=== PATIENT | female | born 1930 | race Caucasian/White ===

== ENCOUNTER 2016-07-08 16:26 | Inpatient (IN) | payer MEDICARE, MEDICAID ==
[~2016-07-08] VITALS: Ht 162.6 cm; Wt 80.3 kg
[~2016-07-08 16:26] MED LIST: ACET325T53 PO; ACET500T86 PO; CALC500T51 PO; DOCU-170 PO; DONE5TAB3 PO; HYDR-3326 PO; LEVO112T2 PO; LINE600T PO; MAGN400O4 PO; MULT1TAB11 PO; NA P133E RC; PANT40TA2 PO; TRAM50TA PO
--- NOTE | 2016-07-08 16:35 | NUR ---
DR RICO AT THE BEDSIDE FOR EVAL AND EXAM.
--- NOTE | 2016-07-08 17:04 | NUR ---
PT REFUSED BLOOD DRAW, AWARE.
--- NOTE | 2016-07-08 17:10 | NUR ---
PT REFUSED CT SCAN, AWARE.
[2016-07-08] MEDS ORDERED: NA P133E RC (17:11)
[2016-07-08] MEDS ORDERED: CLON0.252 PO (17:11)
[2016-07-08] MEDS ORDERED: OMEG1CAP55 PO (17:11)
[2016-07-08] MEDS ORDERED: CRAN3875 PO (17:11)
[2016-07-08] MEDS ORDERED: CRAN400T4 PO (17:11)
[2016-07-08] MEDS ORDERED: BISA10SU12 RC (17:11)
--- NOTE | 2016-07-08 17:41 | NUR ---
PT START BEING AGGRESSIVE, MD AT THE BEDSIDE.
[2016-07-08] MEDS ORDERED: HALOPERIDOL LACTATE 5 MG/1 ML VIAL IM ONE (17:45)
[2016-07-08] MEDS ORDERED: HALOPERIDOL LACTATE 5 MG/1 ML VIAL ONE (17:52)
[2016-07-08] MEDS ORDERED: MIDAZOLAM HCL 2 MG/2 ML VIAL IM ONE (18:15)
[2016-07-08] MEDS ORDERED: MIDAZOLAM HCL 5 MG/ML VIAL ONE (18:18)
--- NOTE | 2016-07-08 18:42 | NUR ---
Patient is resting comfortably in bed with eyes closed, nad noted. vss.
[2016-07-08 18:44] LABS: BASOPHILS % (AUTO) 0.4 % (0.0-2.0); EOSINOPHILS # (AUTO) 0.4 K/uL (0.0-0.7); EOSINOPHILS % (AUTO) 5.4 % (0.0-7.0); HEMATOCRIT 41.1 % (37.0-47.0); HEMOGLOBIN 13.1 g/dL (12.0-16.0); LYMPHOCYTES # (AUTO) 2.1 K/uL (0.8-4.8); LYMPHOCYTES % (AUTO) 25.5 % (20.5-51.5); MEAN CORPUSCULAR HEMOGLOBIN 27.7 uug (27.0-31.0); MEAN CORPUSCULAR HGB CONC 32 g/dL (32.0-37.0); MEAN CORPUSCULAR VOLUME 86.9 fL (81.0-99.0); MONOCYTES # (AUTO) 0.8 K/uL (0.1-1.30); MONOCYTES % (AUTO) 10.2 % (0.0-11.0); NEUTROPHILS # (AUTO) 4.8 K/uL (1.8-8.9); NEUTROPHILS % (AUTO) 58.5 % (38.5-71.5); PLATELET COUNT (AUTO) 261 K/uL (150-450); RED BLOOD CELL COUNT(AUTO) 4.73 MIL/uL (4.20-5.40); RED CELL DISTRIBUTION WIDTH 15.1 % (11.5-14.5); WHITE BLOOD COUNT (AUTO) 8.1 K/uL (4.0-11.2)
[2016-07-08 18:47] LABS: CALCIUM 8.7 mg/dL (8.5-10.1); CARBON DIOXIDE 31 mmol/L (21-32); CHLORIDE 103 mmol/L (98-107); CREATININE 0.9 mg/dL (0.6-1.3); GLUCOSE 102 mg/dL (74-106); POTASSIUM 4.1 mmol/L (3.5-5.1); SODIUM SERUM 141 mmol/L (136-145); UREA NITROGEN, BLOOD 30 mg/dL (7-18)
[2016-07-08 18:53] LABS: ALANINE AMINOTRANSFERASE 22 U/L (14-59); ALKALINE PHOSPHATASE 85 U/L (50-136); ASPARTATE AMINOTRANSFERASE 22 U/L (15-37); BILIRUBIN,DIRECT 0.1 mg/dL (0.0-0.2); BILIRUBIN,TOTAL 0.3 mg/dL (0.2-1.0); TOTAL PROTEIN, SERUM 7.6 g/dL (6.4-8.2)
[2016-07-08 18:55] LABS: ACETAMINOPHEN < 2.0 ug/mL (10-30)
--- NOTE | 2016-07-08 19:00 | NUR ---
Report received from KELLY Reyna.Found patient sound asleep.
[2016-07-08 19:03] LABS: ETHANOL < 3 MG/DL (0-0)
--- NOTE | 2016-07-08 19:10 | NUR ---
aniceto matthews at the bedside for psych eval.
[2016-07-08 19:15] LABS: THYROID STIMULATING HORMONE 9.683 mIU/mL (0.358-3.740)
--- NOTE | 2016-07-08 20:00 | NUR ---
Pt remained stable, intermittently asleep, VS stable.Non aggressive.Continue monitor.Awaits to give report to MHU.
--- NOTE | 2016-07-08 20:15 | NUR ---
Report given to U KELLY Arizmendi.Pt is awake and conversational but remained confused.
--- NOTE | 2016-07-08 20:30 | NUR ---
Transferred pt to MHU via zandra Moeller.
[2016-07-08 20:40] VITALS: BP 118/73
[2016-07-08] MEDS ORDERED: MAGNESIUM HYDROXIDE 30 ML LIQUID UDC PO PRN (21:30)
[2016-07-08] MEDS ORDERED: MAG HYDROX/AL HYDROX/SIMETH 30 ML LIQUID UDC PO PRN (21:30)
[2016-07-08] MEDS ORDERED: ACETAMINOPHEN 325 MG TABLET PO PRN (21:30)
--- NOTE | 2016-07-08 22:00 | NUR ---
received to care, on a 5150 for gravely disabled, this resident of [facility], where she reportedly has been non compliant with nursing care, refusing to use a platform walker, has been more confused. with episodes of wanting to leave, and to go home with her son(who, according to the daughter, has had APS involvement, in the past),and deteriorating medical issues. upon arrival on the unit, she seemed calm, and slightly sedated(pt was given IM haldol and IM versed in the ER) O2 SAT ON ROOM AIR WAS 88%. pt was placed on O2 at 2 lpm via nasal cannula, and sat was 93%. pt was cooperative with questions and physical assessment, but declined to sign any papers. 1;1 sitter was assigned to bedside for safety d/t oxygen tubing. as of 2199, she appears to be asleep. no distress noted. sitter remains at bedside. will continue to monitor closely.
--- NOTE | 2016-07-09 02:00 | NUR ---
continues to sleep. O2 sat is now 95%, on 2 liters/nasal cannula. pt is arousable. no distress noted. sitter remains at bedside.
--- NOTE | 2016-07-09 06:00 | NUR ---
slept 4.5 hours, total. is now awake. O2 sat is 94%, on 2 liters. no distress noted.
[2016-07-09 07:30] VITALS: BP 139/63
[2016-07-09] MEDS ORDERED: HOME MED MISCELLANEOUS XX SCH ×3 (07:45)
[2016-07-09] MEDS ORDERED: HYDROCODONE/APAP 5-325MG TABLET PO PRN (07:45)
[2016-07-09] MEDS ORDERED: BISACODYL 10 MG SUPP.RECT RC PRN (07:45)
[2016-07-09] MEDS ORDERED: FLEET ENEMA 133 ML BOTTLE RC PRN (07:45)
[2016-07-09] MEDS: DOCUSATE SODIUM 100 MG CAPSULE PO SCH (09:46)
[2016-07-09] MEDS: MULTIVIT, IRON, MIN NO. 8, FA TABLET PO SCH (09:46)
[2016-07-09] MEDS: CALCIUM CARBONATE 500 MG TABLET PO SCH (09:46)
--- NOTE | 2016-07-09 11:55 | NUR ---
Initial discharge instructions:Patient resides at [facility] [[facility] [place],[address];[phone]].Per pt,she is unsure if she would like to return there when stable.Per daughter,she would like the pt to return back to [facility] if accepted.However,she is interested in [facility] as well.Spoke with Pat at [facility],who stated the pt will be accepted back when ready.JOSE ANGEL will speak with pt,family,and MD regarding appropriate discharge plans.SW will form a safe and proper discharge.
[2016-07-09 16:40] VITALS: BP 122/65
[2016-07-09] MEDS: DIVALPROEX 125 MG TABLET.DR PO SCH (17:36)
[2016-07-09] MEDS: ACETAMINOPHEN ES 500 MG TABLET PO SCH (17:37)
[2016-07-09] MEDS: OMEGA-3 FATTY ACIDS/FISH OIL CAPSULE PO SCH (20:10)
[2016-07-09] MEDS: DONEPEZIL 10 MG TABLET PO SCH (20:10)
[2016-07-09] MEDS: MIRTAZAPINE 15 MG TABLET PO SCH (20:10)
[2016-07-09] MEDS: CLONAZEPAM 0.5 MG TABLET PO SCH (20:10)
[2016-07-09 20:31] VITALS: BP 126/70
--- NOTE | 2016-07-09 22:00 | NUR ---
received to care, lying in bed, pleasant upon approach, 1;1 sitter at her side. continues O2 at 2lpm via nasal cannula. O2 saturation 94%.remains isolative, in bed. compliant with medications and staff direction. as of 2199, she appears to be asleep. no dsitress noted. will continue to monitor closely.
--- NOTE | 2016-07-10 06:25 | NUR ---
slept 9.5 hours. sitter remains at bedside. no distress noted.
[2016-07-10] MEDS: LEVOTHYROXINE SODIUM 112 MCG TABLET PO SCH (06:37)
[2016-07-10 07:30] VITALS: BP 132/79
[2016-07-10] MEDS: ACETAMINOPHEN ES 500 MG TABLET PO SCH ×2 (08:32→17:51)
[2016-07-10] MEDS: DOCUSATE SODIUM 100 MG CAPSULE PO SCH (08:32)
[2016-07-10] MEDS: MULTIVIT, IRON, MIN NO. 8, FA TABLET PO SCH (08:32)
[2016-07-10] MEDS: CALCIUM CARBONATE 500 MG TABLET PO SCH (08:32)
[2016-07-10] MEDS: DIVALPROEX 125 MG TABLET.DR PO SCH (08:32)
[2016-07-10] MEDS: OMEGA-3 FATTY ACIDS/FISH OIL CAPSULE PO SCH ×2 (08:32→20:57)
[2016-07-10] MEDS: CLONAZEPAM 0.5 MG TABLET PO SCH ×2 (08:49→20:56)
--- NOTE | 2016-07-10 08:50 | NUR ---
PT SLEEPING, WAKES UP WHEN STIMULATED AND GOES BACK TO SLEEP. CLONOPIN 0.25 MG PO WAS HELD
[2016-07-10] MEDS ORDERED: ALBUTEROL SULFATE 1.25 MG/3 ML NEBU NEB PRN (15:45)
[2016-07-10 16:00] VITALS: BP 117/59
--- NOTE | 2016-07-10 16:45 | NUR ---
GPS NURSING lowered pt's o2 therapy to 1 LPM. pt's O2 sat goes to 90-92%. pt is back to 2lpm.
[2016-07-10] MEDS ORDERED: DIVALPROEX 125 MG TABLET.DR PO SCH (17:00)
[2016-07-10] MEDS: DIVALPROEX 250 MG TABLET.DR PO SCH (17:51)
[2016-07-10 20:25] VITALS: BP 118/71
[2016-07-10] MEDS: MIRTAZAPINE 15 MG TABLET PO SCH (20:57)
[2016-07-10] MEDS: DONEPEZIL 10 MG TABLET PO SCH (20:57)
[2016-07-10] MEDS ORDERED: NYSTATIN CREAM 30 GM TUBE TOP SCH (21:00)
--- NOTE | 2016-07-10 22:00 | NUR ---
addendum/ pt has been sleeping. easy to awaken, but falls right back to sleep, after being engaged, so her bedtime dose of klonopin was held.
[2016-07-11] MEDS: LEVOTHYROXINE SODIUM 112 MCG TABLET PO SCH (06:25)
--- NOTE | 2016-07-11 06:30 | NUR ---
slept 8.5 hours. assisted with AM care, and shower. currently up in amy chair. no distress noted.
[2016-07-11 07:30] VITALS: BP 139/72
--- NOTE | 2016-07-11 08:10 | NUR ---
REFUSED AM LABS
[2016-07-11] MEDS: DIVALPROEX 250 MG TABLET.DR PO SCH ×2 (08:42→17:39)
[2016-07-11] MEDS: OMEGA-3 FATTY ACIDS/FISH OIL CAPSULE PO SCH ×2 (08:42→20:12)
[2016-07-11] MEDS: CLONAZEPAM 0.5 MG TABLET PO SCH (08:42)
[2016-07-11] MEDS: CALCIUM CARBONATE 500 MG TABLET PO SCH (08:42)
[2016-07-11] MEDS: ACETAMINOPHEN ES 500 MG TABLET PO SCH ×2 (08:42→17:39)
[2016-07-11] MEDS: MULTIVIT, IRON, MIN NO. 8, FA TABLET PO SCH (08:42)
[2016-07-11] MEDS: DOCUSATE SODIUM 100 MG CAPSULE PO SCH (08:42)
[2016-07-11] MEDS: NYSTATIN CREAM 30 GM TUBE TOP SCH ×2 (09:00→20:13)
--- NOTE | 2016-07-11 09:30 | NUR ---
GPS NURSING NOTES PER PHARMACY, NYSTATIN CREAM IS NOT AVAILABLE TODAY. MEDICATION WILL BE AVAILABLE TOMORROW.
[2016-07-11 20:10] VITALS: BP 122/69
[2016-07-11] MEDS: DONEPEZIL 10 MG TABLET PO SCH (20:12)
[2016-07-11] MEDS: MIRTAZAPINE 15 MG TABLET PO SCH (20:12)
[2016-07-12] MEDS: LEVOTHYROXINE SODIUM 112 MCG TABLET PO SCH (06:20)
--- NOTE | 2016-07-12 06:39 | NUR ---
GPS: REMAIN CALM AND COOPERATIVE WITH MEDS CARE. SLEPT 8:45 HRS THROUGH THE NIGHT. ASSISTED WITH ADL'S. CONTINUE ON 1:1 SITTER @ BEDSIDE FOR SAFETY ALL THE TIMES.
[2016-07-12] MEDS: DOCUSATE SODIUM 100 MG CAPSULE PO SCH (09:05)
[2016-07-12] MEDS: CALCIUM CARBONATE 500 MG TABLET PO SCH (09:05)
[2016-07-12] MEDS: MULTIVIT, IRON, MIN NO. 8, FA TABLET PO SCH (09:05)
[2016-07-12] MEDS: OMEGA-3 FATTY ACIDS/FISH OIL CAPSULE PO SCH ×2 (09:05→21:20)
[2016-07-12] MEDS: DIVALPROEX 250 MG TABLET.DR PO SCH ×2 (09:05→16:37)
[2016-07-12] MEDS: NYSTATIN CREAM 30 GM TUBE TOP SCH ×2 (09:06→21:20)
[2016-07-12] MEDS: ACETAMINOPHEN ES 500 MG TABLET PO SCH ×2 (09:06→16:37)
[2016-07-12 10:23] VITALS: BP 113/38
[2016-07-12 12:12] LABS: *BILIRUBIN,URIN NEGATIVE (NEGATIVE); *BLOOD, URINE Trace-lysed (NEGATIVE); *CLARITY,URINE CLOUDY (CLEAR); *COLOR,URINE YELLOW (YELLOW); *KETONES,URINE TRACE (NEGATIVE); *PROTEIN,URINE TRACE (NEGATIVE); *UROBILINOGEN,URINE 0.2 E.U./dl (NORMAL); UGLUCOSE NEGATIVE (NEGATIVE)
[2016-07-12 12:20] LABS: LEUKOCYTE ESTERASE ,URINE TRACE (NEGATIVE); NITRITE, URINE POSITIVE (NEGATIVE)
[2016-07-12 12:22] LABS: BACTERIA,URINE MANY /HPF (NONE SEEN); RBC,URINE 0-3 /HPF (0-3); SQUAMOUS EPITHELIAL CELL,UR FEW /HPF (NONE SEEN); WBC,URINE TNTC /HPF (0-3)
[2016-07-12 16:00] VITALS: BP 108/60
[2016-07-12] MEDS: CEPHALEXIN MONOHYDRATE 250 MG CAPSULE PO SCH ×2 (16:37→22:00)
[2016-07-12] MEDS: DONEPEZIL 10 MG TABLET PO SCH (21:20)
[2016-07-12] MEDS: MIRTAZAPINE 15 MG TABLET PO SCH (21:20)
[2016-07-12] MEDS: CLONAZEPAM 0.5 MG TABLET PO SCH (21:25)
[2016-07-12 21:27] VITALS: BP 128/50
[2016-07-13] MEDS: CEPHALEXIN MONOHYDRATE 250 MG CAPSULE PO SCH ×3 (06:20→22:16)
[2016-07-13] MEDS: LEVOTHYROXINE SODIUM 112 MCG TABLET PO SCH (06:45)
[2016-07-13 07:30] VITALS: BP 144/70
[2016-07-13] MEDS: OMEGA-3 FATTY ACIDS/FISH OIL CAPSULE PO SCH ×2 (08:43→20:24)
[2016-07-13] MEDS: MULTIVIT, IRON, MIN NO. 8, FA TABLET PO SCH (08:44)
[2016-07-13] MEDS: CALCIUM CARBONATE 500 MG TABLET PO SCH (08:44)
[2016-07-13] MEDS: ACETAMINOPHEN ES 500 MG TABLET PO SCH ×2 (08:44→17:35)
[2016-07-13] MEDS: DIVALPROEX 250 MG TABLET.DR PO SCH ×2 (08:44→17:35)
[2016-07-13] MEDS: DOCUSATE SODIUM 100 MG CAPSULE PO SCH (08:44)
[2016-07-13] MEDS: NYSTATIN CREAM 30 GM TUBE TOP SCH ×2 (09:04→20:25)
[2016-07-13 15:21] VITALS: BP 122/74
[2016-07-13 20:00] VITALS: BP 110/61
[2016-07-13] MEDS: DONEPEZIL 10 MG TABLET PO SCH (20:24)
[2016-07-13] MEDS: MIRTAZAPINE 15 MG TABLET PO SCH (20:24)
[2016-07-13] MEDS: CLONAZEPAM 0.5 MG TABLET PO SCH (20:24)
[2016-07-14] MEDS: CEPHALEXIN MONOHYDRATE 250 MG CAPSULE PO SCH ×3 (06:04→21:57)
[2016-07-14] MEDS: LEVOTHYROXINE SODIUM 125 MCG TABLET PO SCH (06:04)
[2016-07-14] MEDS ORDERED: LEVOTHYROXINE SODIUM 112 MCG TABLET PO SCH (07:00)
[2016-07-14 07:30] VITALS: BP 116/77
[2016-07-14] MEDS: DIVALPROEX 250 MG TABLET.DR PO SCH ×2 (08:55→17:35)
[2016-07-14] MEDS: ACETAMINOPHEN ES 500 MG TABLET PO SCH ×2 (08:56→17:35)
[2016-07-14] MEDS: OMEGA-3 FATTY ACIDS/FISH OIL CAPSULE PO SCH ×2 (08:56→20:43)
[2016-07-14] MEDS: CALCIUM CARBONATE 500 MG TABLET PO SCH (08:56)
[2016-07-14] MEDS: DOCUSATE SODIUM 100 MG CAPSULE PO SCH (08:56)
[2016-07-14] MEDS: MULTIVIT, IRON, MIN NO. 8, FA TABLET PO SCH (08:56)
[2016-07-14] MEDS: NYSTATIN CREAM 30 GM TUBE TOP SCH ×2 (09:21→20:43)
[2016-07-14 15:51] VITALS: BP 119/68
[2016-07-14 19:45] VITALS: BP 106/57
[2016-07-14] MEDS: DONEPEZIL 10 MG TABLET PO SCH (20:43)
[2016-07-14] MEDS: MIRTAZAPINE 15 MG TABLET PO SCH (20:43)
[2016-07-14] MEDS: CLONAZEPAM 0.5 MG TABLET PO SCH (20:43)
[2016-07-14] MEDS: Z GUARD REMEDY PASTE 57 GM TUBE TOP SCH (20:44)
[2016-07-15] MEDS: CEPHALEXIN MONOHYDRATE 250 MG CAPSULE PO SCH ×3 (06:28→22:00)
[2016-07-15] MEDS: LEVOTHYROXINE SODIUM 125 MCG TABLET PO SCH (06:28)
[2016-07-15 07:30] VITALS: BP 109/67
[2016-07-15] MEDS: DOCUSATE SODIUM 100 MG CAPSULE PO SCH (09:47)
[2016-07-15] MEDS: OMEGA-3 FATTY ACIDS/FISH OIL CAPSULE PO SCH ×2 (09:47→20:52)
[2016-07-15] MEDS: DIVALPROEX 250 MG TABLET.DR PO SCH ×2 (09:47→17:26)
[2016-07-15] MEDS: MULTIVIT, IRON, MIN NO. 8, FA TABLET PO SCH (09:48)
[2016-07-15] MEDS: CALCIUM CARBONATE 500 MG TABLET PO SCH (09:48)
[2016-07-15] MEDS: ACETAMINOPHEN ES 500 MG TABLET PO SCH ×2 (09:48→17:26)
[2016-07-15] MEDS: NYSTATIN CREAM 30 GM TUBE TOP SCH ×2 (09:48→20:52)
[2016-07-15] MEDS: Z GUARD REMEDY PASTE 57 GM TUBE TOP SCH ×2 (09:49→20:52)
[2016-07-15 16:27] VITALS: BP 114/75
[2016-07-15] MEDS: CLONAZEPAM 0.5 MG TABLET PO SCH (20:51)
[2016-07-15] MEDS: MIRTAZAPINE 15 MG TABLET PO SCH (20:52)
[2016-07-15] MEDS: DONEPEZIL 10 MG TABLET PO SCH (20:52)
[2016-07-15 20:54] VITALS: BP 109/63
[2016-07-16] MEDS: CEPHALEXIN MONOHYDRATE 250 MG CAPSULE PO SCH ×2 (06:37→14:20)
[2016-07-16] MEDS: LEVOTHYROXINE SODIUM 125 MCG TABLET PO SCH (06:37)
[2016-07-16 07:30] VITALS: BP 130/59
[2016-07-16] MEDS: ACETAMINOPHEN ES 500 MG TABLET PO SCH (09:24)
[2016-07-16] MEDS: OMEGA-3 FATTY ACIDS/FISH OIL CAPSULE PO SCH (09:24)
[2016-07-16] MEDS: DIVALPROEX 250 MG TABLET.DR PO SCH (09:24)
[2016-07-16] MEDS: Z GUARD REMEDY PASTE 57 GM TUBE TOP SCH (09:24)
[2016-07-16] MEDS: MULTIVIT, IRON, MIN NO. 8, FA TABLET PO SCH (09:24)
[2016-07-16] MEDS: DOCUSATE SODIUM 100 MG CAPSULE PO SCH (09:24)
[2016-07-16] MEDS: CALCIUM CARBONATE 500 MG TABLET PO SCH (09:24)
[2016-07-16] MEDS: NYSTATIN CREAM 30 GM TUBE TOP SCH (09:25)
--- NOTE | 2016-07-16 11:25 | NUR ---
DC Note:The Patient will be discharged today back to [facility] [[address] [place] [id number]; ] via ambulance at 1:00 pm. Please schedule an ambulance for the patient. Spoke with Pat at the facility who stated she would accept the patient today. Spoke with patient's daughter/DPOA, Kasia [phone] who is aware and agreeable with discharge plans. Patient will follow-up with (Psychiatrist) and (Valve Maker) at the facility.
--- NOTE | 2016-07-16 14:30 | NUR ---
PT IS BEING DISCHARGED TO [facility] VIA AMBULANCE. PT IS AWARE AND AGREES TO GO. PT'S DAUGHTER WAS NOTIFIED. PT IS UNABLE TO SIGN DISCHARGE PAPERWORK. NO DISTRESS NOTED.
== END 2016-07-16 14:45 | DRG 885 ==
LOC: ER 16:26 → GPS 20:24
PROVIDERS: ADMIT Psychiatry & Neurology Psychosomatic Medicine; ATTEND Internal Medicine
DX: F29 Unspecified psychosis not due to a substance or known physiological condition (principal); F02.81 Dementia in other diseases classified elsewhere, unspecified severity, with behavioral disturbance; N39.0 Urinary tract infection, site not specified; E03.9 Hypothyroidism, unspecified; E78.5 Hyperlipidemia, unspecified; K21.9 Gastro-esophageal reflux disease without esophagitis; M19.90 Unspecified osteoarthritis, unspecified site; I10 Essential (primary) hypertension; G30.9 Alzheimer's disease, unspecified; B96.20 Unspecified Escherichia coli [E. coli] as the cause of diseases classified elsewhere
CPT/HCPCS: 36415; 71010; 84443; 85025; 87077; 87086; 93005; 97001; 97110; 97530; A4663; C1758; G0480-TC; G6040-TC; J1630; J2250; J3490